=== PATIENT | male | born 1940 ===

== ENCOUNTER 2020-08-29 06:28 | Day surgery (SDC) | payer OTHER ==
[2020-08-29] MEDS ORDERED: ULTRAM50 MG PO (10:31)
[2020-08-29] MEDS ORDERED: MIRALAX17 GM PO (10:31)
[2020-08-29] MEDS ORDERED: TYLENOL ARTHRI650 MG PO (10:31)
== END 2020-08-30 16:15 | disposition home or self-care (01) ==
LOC: CIR.AMB 06:28
PROVIDERS: ATTEND Surgery
DX: K40.90 Unilateral inguinal hernia, without obstruction or gangrene, not specified as recurrent (principal); Z20.822 Contact with and (suspected) exposure to COVID-19